=== PATIENT | female | born 1965 | race Caucasian/White ===

== ENCOUNTER 2020-06-03 22:48 | Observation (INO) | payer OTHER, SELFPAY ==
[2020-06-03 22:45] VITALS: BP 139/84; PULSE 70; RESP 15; TEMP 37.4; O2SAT 96; BMI 26.1
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
[2020-06-03 23:20] LABS: Add Manual Diff / Slide Review NO; Basophils Absolute Auto 0 /uL (0-100); Basophils Percent Auto 0.4 % (0-2); Eosinophils Absolute Auto 100 /uL (0-450); Eosinophils Percent Auto 1.1 % (2-4); Hematocrit 42.2 % (36-46); Hemoglobin 14.4 g/dL (12.0-16.0); Lymphocytes Absolute Auto 2100 /uL (1100-4500); Lymphocytes Percent Auto 25.5 % (25-40); Mean Corpuscular Hemoglobin 31.9 PG (26-34); Mean Corpuscular Volume 93.8 fL (80-100); Monocytes Absolute Auto 500 /uL (0-900); Monocytes Percent Auto 5.9 % (3-14); Neutrophils Absolute Auto 5500 /uL (1500-7000); Neutrophils Percent Auto 67.1 % (50-75); Platelet Count 239 X10^3/uL (150-400); Red Cell Distribution Width 12.8 % (11.6-14.8); White Blood Cell Count 8.1 X10^3/uL (4.5-11.0)
[2020-06-03 23:30] LABS: Ethanol (ETOH) 111 mg/dL
[2020-06-03 23:31] LABS: Alanine Aminotransferase 23 IU/L (<35); Albumin 4.8 g/dL (3.5-5.0); Albumin Globulin Ratio 1.4 (1.0-2.8); Alkaline Phosphatase 79 U/L (38-126); Aspartate Aminotransferase 37 IU/L (14-36); BUN Creatinine Ratio 18.8 (6-22); Bilirubin Total 0.5 mg/dL (0.2-1.3); Blood Urea Nitrogen 13 mg/dL (7-17); Calcium 9.6 mg/dL (8.4-10.2); Carbon Dioxide 25 mmol/L (22-32); Chloride 104 mmol/L (98-107); Estimated Glomerular Filt Rate > 60.0 mL/min (>60); Globulin 3.4 g/dL (1.7-4.1); Glucose 109 mg/dL (70-100); HEMOLYSIS < 15 (0-50); Lipase 507 U/L (23-300); Potassium 3.4 mmol/L (3.4-5.1); Sodium 139 mmol/L (137-145); Total Protein 8.2 g/dL (6.3-8.2)
[2020-06-03 23:34] VITALS: PULSE 84; O2SAT 91
[2020-06-03 23:36] VITALS: BP 122/79; PULSE 85; RESP 14; O2SAT 100
[2020-06-03] MEDS: LORazepam 2 MG/ML INJ 0.5 MG IV (23:41)
--- NOTE | 2020-06-03 23:48 | PC.NURSE ---
Pt agreeable to talk with Counselor Aid. Son also present at bedside per pt request.
[2020-06-04] VITALS: BP 125/67; PULSE 72; O2SAT 100
[2020-06-04 00:30] VITALS: BP 116/58; PULSE 77; O2SAT 96
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
[2020-06-04] MEDS: KETOROLAC 60 MG/2 ML VIAL 15 MG IV (01:15)
[2020-06-04] MEDS: HYDROMORPHONE 0.5 MG INJ IV (01:16)
[2020-06-04] MEDS: ONDANSETRON 4 MG/2 ML INJ IV (02:13)
[2020-06-04 02:18] LABS: Ur Creatinine Normal (Normal); Ur Specific Gravity Normal (Normal); Urine pH Normal (Normal)
[2020-06-04 02:19] LABS: UR Morphine/Opiate cutoff 300 Negative (Negative); Urine Amphetamines Negative (Negative); Urine Barbiturates Negative (Negative); Urine Benzodiazepines Negative (Negative); Urine Cocaine Negative (Negative); Urine MDMA Negative (Negative); Urine Methadone Negative (Negative); Urine Methamphetamines Negative (Negative); Urine Phencyclidine Negative (Negative); Urine Tetrahydrocannabinol Negative (Negative); Urine Tricyclic Antidepressant Negative (Negative)
[2020-06-04 02:22] LABS: Urine Oxycodone Negative (Negative)
[2020-06-04 04:05] LABS: COVID19 -Nasal RAPID Negative (Negative)
[2020-06-04 04:15] VITALS: BMI 26.1
[2020-06-04 04:16] VITALS: BP 127/75; PULSE 60; RESP 16; TEMP 36.2; O2SAT 99
[2020-06-04] MEDS: SODIUM CHLORIDE 0.9% 1,000 ML 125 ML IV (05:16)
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
[2020-06-04 08:00] VITALS: BP 111/70; PULSE 67; RESP 16; TEMP 36.9; O2SAT 95
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
--- NOTE | 2020-06-04 09:25 | PC.NURSE ---
Addendum entered by Giulia Fregoso R.N. 06/04/20 14:22: Pt had intermittent warm pack and ice pack to left lower flank. C/O burning and aching pain, slow movements. Again no visible skin issue. Pt states she will call PCP and make follow up appointment through her email, son Susie present for discharge info. No further voiced concerns. Pt may take Acetaminophen and Ibuprofen prn for pain per Dr. Murphy. Pt aware per Dr. Murphy that left shoulder x-ray is negative for fracture or dislocation. Pt states has all her belongings, pt left unit at 1422 via wheelchair with [employer] escort. Richards present to drive pt home. Addendum entered by Giulia Fregoso R.N. 06/04/20 11:48: pt is speaking slightly better, less discomfort, more willing to speak out loud as this morning was to painful to speak. Pt states feeling safe going back home with her son Susie. states her is in [facility] for 72 hours and the correctional counselor/case manager is in contact with her regarding setting up resource information for pt. Kathleen, child welfare social worker also retrieving resources for pt prior to pt discharge. Original Note: Day Shift- Pt A&OX4, able to make needs known using call light. Pt's son Susie visiting in room around 0830 and he would be pt's ride home if pt is discharged today. Pt reports sore throat and tenderness more so to left side of neck. left side of neck is more swollen compared to right side. Bruising noted across neck area and left eye. Ice pack to neck area. Pt reports mild pain and tenderness to left lower flank, ice pack in place, no visible skin issue at this time. IVF infusing per order. Pt encouraged to keep hydrated, taking small sips, eat soft foods for comfort of swallowing. Encouraged to have small bites of foods and chew well. As pt reports pain with swallowing. No deviation of trachea noted when pt swallowed. Will continue to monitor.
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
== END 2020-06-04 14:22 | disposition home or self-care (01) ==
LOC: ED 06-04 03:01 → AC 06-04 04:00
PROVIDERS: Admitting Provider Surgery; Emergency Provider Emergency Medicine; Visit Provider Surgery
DX: S02.2XXA Fracture of nasal bones, initial encounter for closed fracture (principal); R11.0 Nausea; R10.9 Unspecified abdominal pain; Z11.59 Encounter for screening for other viral diseases; S00.83XA Contusion of other part of head, initial encounter; S10.91XA Abrasion of unspecified part of neck, initial encounter; S06.0X0A Concussion without loss of consciousness, initial encounter; T71.193A Asphyxiation due to mechanical threat to breathing due to other causes, assault, initial encounter; Y04.8XXA Assault by other bodily force, initial encounter; F10.929 Alcohol use, unspecified with intoxication, unspecified; Y90.5 Blood alcohol level of 100-119 mg/100 ml
CPT/HCPCS: 36415; 70450; 70486; 70491; 71260; 72125; 73030; 74177; 80053; 80305; 80320; 81003; 83690; 85025; 87635; 96361; 96374; 96375; 99219; 99285; G0378; J1170; J1885; J2060; J2405; Q9967